=== PATIENT | female | born 1975 | race Two or more races ===

== ENCOUNTER 2021-01-13 08:04 | Outpatient (CLI) | payer OTHER | END 2021-01-13 08:14 | disposition home or self-care (01) | LOC: LAB 08:04 | PROVIDERS: ATTEND Internal Medicine | DX: M15.8 Other polyosteoarthritis (principal) ==

== ENCOUNTER 2021-01-13 08:37 | Outpatient (CLI) | payer OTHER | END 2021-01-13 09:24 | disposition home or self-care (01) | LOC: RAD 08:37 → SONOGRAMA 08:45 → RAD 09:24 | PROVIDERS: ATTEND Internal Medicine | DX: M54.2 Cervicalgia (principal); S80.911A Unspecified superficial injury of right knee, initial encounter; M46.1 Sacroiliitis, not elsewhere classified; M19.041 Primary osteoarthritis, right hand; M19.042 Primary osteoarthritis, left hand; M79.671 Pain in right foot; M79.672 Pain in left foot; M48.8X7 Other specified spondylopathies, lumbosacral region; M53.3 Sacrococcygeal disorders, not elsewhere classified ==